=== PATIENT | male | born 1960 | race African-American/Black ===

== ENCOUNTER 2023-09-29 21:28 | Emergency (ER) | payer OTHER ==
[~2023-09-29] VITALS: Ht 172.7 cm; Wt 90.0 kg
[~2023-09-29 21:28] MED LIST: AMIT75TA2; BACL-141; BENA10TA74; CEPH250T; DIPH-1205; IBUPROFEN
[2023-09-29 21:33] VITALS: TEMP 98.1; O2SAT 97
[2023-09-30] MEDS ORDERED: LISI40TA13 MT
[2023-09-30 00:50] VITALS: BP 170/92; PULSE 82; RESP 16
[2023-09-30] MEDS: KETOROLAC 30MG/ML VIAL IM ONE (00:50)
== END 2023-09-30 00:52 | disposition home or self-care (01) ==
LOC: ER 21:28
DX: R51.9 Headache, unspecified (principal); I10 Essential (primary) hypertension; Z79.899 Other long term (current) drug therapy
CPT/HCPCS: 99285; 70450; 96372; J1885